=== PATIENT | female | born 1995 | race Caucasian/White ===

== ENCOUNTER 2018-12-29 16:12 | Emergency (ER) | payer MEDICAID, MEDICARE ==
[~2018-12-29] VITALS: Ht 165.1 cm; Wt 129.3 kg
[2018-12-29 16:31] VITALS: BP 172/94
--- NOTE | 2018-12-29 16:34 | NUR ---
PT TO LOBBY
--- NOTE | 2018-12-29 17:36 | NUR ---
BIB SELF. AAO X4 C/O ITCHY BURNING RASH TO BLE, CHEST, BACK X THIS AM. BREATHING EVEN AND UNLABORED. PT DENIES SOB, FEVER, N/V. ER TO EVALUATE PT.
--- NOTE | 2018-12-29 17:36 | NUR ---
pt ambulated to bed 4
--- NOTE | 2018-12-29 17:49 | NUR ---
[facility] AT BEDSIDE FOR PT EVAL
[2018-12-29] MEDS ORDERED: DEXAMETHASONE 10 MG/ML VIAL IM ONE (17:50)
[2018-12-29 18:28] VITALS: BP 142/88
--- NOTE | 2018-12-29 18:28 | NUR ---
Patient discharged with v/s stable. Written and verbal after care instructions given and explained. Patient alert, oriented and verbalized understanding of instructions. Ambulatory with steady gait. All questions addressed prior to discharge. ID band removed. Patient advised to follow up with PMD. Rx of [facility] HYDROCORTISONE 1%, DIPHENDYDRAINE HYDROCHLORIDE, PREDNISONE given. Patient educated on indication of medication including possible reaction and side effects. Opportunity to ask questions provided and answered.
== END 2018-12-29 18:28 | disposition home or self-care (01) ==
LOC: MED 16:12
DX: L30.9 Dermatitis, unspecified (principal)
CPT/HCPCS: 96372; 99283; J1100; Q0163

== ENCOUNTER 2020-07-31 16:48 | Emergency (ER) | payer MEDICAID ==
[~2020-07-31] VITALS: Ht 165.1 cm; Wt 123.8 kg
[2020-07-31 16:55] VITALS: BP 140/90
[2020-07-31] MEDS ORDERED: ONDANSETRON 4 MG ODT PO ONE (17:15)
--- NOTE | 2020-07-31 17:35 | NUR ---
25 Y/O FEMALE C/O ABD DISCOMFORT x1 MONTH, SEVERE NAUSEA IN THE LAST WEEK WITH POOR PO INTAKE. PT STATED SHE VOMITED THIS AM. PT ALSO STATES SHE HAS NEW BRUISING ON HER BLE AND DENIES INJURY/TRAUMA. PT STATED ABD PAIN HAS WORSEN X1 WEEK. PT DENIES SOB/ PAIN AT THIS TIME AND DENIES TAKING ANYTHING FOR THE PAIN. PT STATES SHE FEELS BLOATED AND IS BURPING OFTEN. ON ASSESSMENT, ABD IS FLAT, SOFT, AND NONTENDER WITHACTIVE BOWEL SOUNDS X4 QUADS. PT IS A/O X4 WITH EVEN AND UNLABORED RESPIRATIONS. Hx NEUROPATHY NKA
[2020-07-31 17:36] LABS: BASOPHILS # (AUTO) 0.1 K/uL (0.00-0.22); EOSINOPHILS % (AUTO) 0.5 % (0.0-4.0); HEMOGLOBIN 13.2 g/dL (12.0-16.0); LYMPHOCYTES # (AUTO) 2.1 K/uL (2.5-16.5); LYMPHOCYTES % (AUTO) 21.1 % (20.5-51.1); MEAN CORPUSCULAR HEMOGLOBIN 28 pg (27-31); MEAN CORPUSCULAR HGB CONC 32 g/dL (33-37); MEAN CORPUSCULAR VOLUME 86.8 fL (80-94); MONOCYTES # (AUTO) 0.9 K/uL (0.8-1.0); MONOCYTES % (AUTO) 9.2 % (1.7-9.3); NEUTROPHILS # (AUTO) 6.7 K/uL (1.8-7.7); NEUTROPHILS % (AUTO) 68.2 % (42.2-75.2); PLATELET COUNT (AUTO) 409 K/uL (140-450); RED BLOOD CELL COUNT(AUTO) 4.72 MIL/uL (4.20-5.40); RED CELL DISTRIBUTION WIDTH 14.8 % (11.6-13.7); WHITE BLOOD COUNT (AUTO) 9.8 K/uL (4.8-10.8)
--- NOTE | 2020-07-31 17:40 | NUR ---
PT AMBULATED TO RESTROOM FOR URINE SAMPLE
[2020-07-31 18:01] LABS: ALBUMIN 3.9 g/dL (3.4-5.0); CARBON DIOXIDE 28.5 mmol/L (21-32); POTASSIUM 3.5 mmol/L (3.5-5.1); TOTAL BILIRUBIN 0.4 mg/dL (0.0-1.0)
[2020-07-31 18:17] VITALS: BP 140/90
--- NOTE | 2020-07-31 18:18 | NUR ---
Patient discharged with v/s stable. Written and verbal after care instructions given and explained. Patient alert, oriented and verbalized understanding of instructions. Ambulatory with steady gait. All questions addressed prior to discharge. ID band removed. Patient advised to follow up with PMD. Rx of zofran, tylenol extra strength, bentyl, and omprezole given. Patient educated on indication of medication including possible reaction and side effects. Opportunity to ask questions provided and answered.
== END 2020-07-31 18:18 | disposition home or self-care (01) ==
LOC: MED 16:48
DX: K29.70 Gastritis, unspecified, without bleeding (principal); K58.9 Irritable bowel syndrome, unspecified; F12.10 Cannabis abuse, uncomplicated
CPT/HCPCS: 36415; 80053; 81002; 81025; 83690; 85025; 99283; Q0162

== ENCOUNTER 2021-06-23 11:49 | Emergency (ER) | payer MEDICAID ==
[~2021-06-23] VITALS: Ht 165.1 cm; Wt 121.1 kg
[2021-06-23 12:33] VITALS: BP 137/81
[2021-06-23] MEDS ORDERED: METOCLOPRAMIDE 10 MG TAB PO ONE (13:30)
[2021-06-23] MEDS ORDERED: KETOROLAC 60 MG/2 ML VIAL IM ONE (13:30)
[2021-06-23 13:49] LABS: BASOPHILS # (AUTO) 0.1 K/uL (0.00-0.22); BASOPHILS % (AUTO) 0.8 % (0.0-2.0); EOSINOPHILS % (AUTO) 0.1 % (0.0-4.0); HEMATOCRIT 42.6 % (36-48); LYMPHOCYTES # (AUTO) 1.6 K/uL (2.5-16.5); MEAN CORPUSCULAR HEMOGLOBIN 28 pg (27-31); MEAN CORPUSCULAR HGB CONC 33 g/dL (33-37); MEAN CORPUSCULAR VOLUME 84.7 fL (80-94); MONOCYTES # (AUTO) 0.5 K/uL (0.8-1.0); MONOCYTES % (AUTO) 7.5 % (1.7-9.3); NEUTROPHILS # (AUTO) 4.7 K/uL (1.8-7.7); NEUTROPHILS % (AUTO) 68.6 % (42.2-75.2); PLATELET COUNT (AUTO) 291 K/uL (140-450); RED BLOOD CELL COUNT(AUTO) 5.03 MIL/uL (4.20-5.40); RED CELL DISTRIBUTION WIDTH 15.1 % (11.6-13.7); WHITE BLOOD COUNT (AUTO) 6.9 K/uL (4.8-10.8)
--- NOTE | 2021-06-23 14:06 | NUR ---
PT TAKEN TO CT VIA W/C.
[2021-06-23 14:32] LABS: ALBUMIN 3.7 g/dL (3.4-5.0); ANION GAP 15.2 (8-16); CREATININE 0.8 mg/dL (0.6-1.3); POTASSIUM 4.2 mmol/L (3.5-5.1); TOTAL BILIRUBIN 0.3 mg/dL (0.0-1.0)
[2021-06-23] MEDS ORDERED: IBUP-2213 PO (14:40)
[2021-06-23] MEDS ORDERED: METO-486 PO (14:40)
[2021-06-23 14:59] VITALS: BP 129/74
--- NOTE | 2021-06-23 14:59 | NUR ---
Patient discharged with v/s stable. Written and verbal after care instructions given FOR MIGRAINE HEADACHE and explained. Patient alert, oriented and verbalized understanding of instructions. Ambulatory with steady gait. All questions addressed prior to discharge. ID band removed. Patient advised to follow up with PMD. Rx of IBUPROFEN AND REGLAN given. Patient educated on indication of medication including possible reaction and side effects. Opportunity to ask questions provided and answered.
[2021-06-23] MEDS ORDERED: NAPR-54 PO (15:21)
== END 2021-06-23 14:59 | disposition home or self-care (01) ==
LOC: MED 11:49
DX: R51.9 Headache, unspecified (principal); M79.10 Myalgia, unspecified site; R11.10 Vomiting, unspecified; R05.9 Cough, unspecified; F12.10 Cannabis abuse, uncomplicated
CPT/HCPCS: 70450; 80053; 81002; 81025; 85025; 96372; 99284; J1885; J8597

== ENCOUNTER 2022-06-22 14:44 | Emergency (ER) | payer MEDICAID ==
[~2022-06-22] VITALS: Ht 162.6 cm; Wt 133.8 kg
[~2022-06-22 14:44] MED LIST: METO-486 PO; NAPR-54 PO
[2022-06-22 14:49] VITALS: BP 153/79
--- NOTE | 2022-06-22 14:57 | NUR ---
AMBULATORY AND STEADY GAIT, TO RESTROOM FOR URINE SAMPLE
[2022-06-22] MEDS ORDERED: IBUP-2213 PO (16:27)
[2022-06-22] MEDS ORDERED: KETOROLAC 30 MG/ML VIAL IM ONE (16:30)
== END 2022-06-22 16:37 | disposition home or self-care (01) ==
LOC: MED 14:44
DX: S20.212A Contusion of left front wall of thorax, initial encounter (principal); M25.512 Pain in left shoulder; E66.9 Obesity, unspecified; Z68.1 Body mass index [BMI] 19.9 or less, adult; V49.88XA Car occupant (driver) (passenger) injured in other specified transport accidents, initial encounter; Y93.89 Activity, other specified; Y92.89 Other specified places as the place of occurrence of the external cause; Y99.8 Other external cause status
CPT/HCPCS: 71045; 71120; 73030; 81025; 99284

== ENCOUNTER 2022-06-24 13:39 | Emergency (ER) | payer MEDICAID ==
[~2022-06-24] VITALS: Ht 165.1 cm; Wt 132.9 kg
[~2022-06-24 13:39] MED LIST changes: +IBUP-2213 PO
[2022-06-24 13:46] VITALS: BP 118/59
--- NOTE | 2022-06-24 13:50 | NUR ---
Patient ambulated to bed 5.
--- NOTE | 2022-06-24 14:05 | NUR ---
Lab at bedside.
[2022-06-24 14:12] LABS: BASOPHILS # (AUTO) 0.1 K/uL (0.00-0.22); BASOPHILS % (AUTO) 0.7 % (0.0-2.0); EOSINOPHILS # (AUTO) 0.1 K/uL (0-0.4); EOSINOPHILS % (AUTO) 0.6 % (0.0-4.0); HEMATOCRIT 37.5 % (36-48); HEMOGLOBIN 12.4 g/dL (12.0-16.0); LYMPHOCYTES # (AUTO) 2.4 K/uL (2.5-16.5); LYMPHOCYTES % (AUTO) 24.4 % (20.5-51.1); MEAN CORPUSCULAR HEMOGLOBIN 27 pg (27-31); MEAN CORPUSCULAR HGB CONC 33 g/dL (33-37); MEAN CORPUSCULAR VOLUME 82.5 fL (80-94); MONOCYTES # (AUTO) 0.7 K/uL (0.8-1.0); MONOCYTES % (AUTO) 6.8 % (1.7-9.3); NEUTROPHILS # (AUTO) 6.7 K/uL (1.8-7.7); NEUTROPHILS % (AUTO) 67.5 % (42.2-75.2); PLATELET COUNT (AUTO) 386 K/uL (140-450); RED BLOOD CELL COUNT(AUTO) 4.54 MIL/uL (4.20-5.40); RED CELL DISTRIBUTION WIDTH 15.4 % (11.6-13.7)
[2022-06-24 14:30] LABS: ALBUMIN 3.9 g/dL (3.4-5.0); CREATININE 0.8 mg/dL (0.6-1.3); TOTAL BILIRUBIN 0.3 mg/dL (0.0-1.0)
[2022-06-24 14:42] LABS: APPEARANCE,URINE CLEAR (CLEAR); BILIRUBIN,URINE NEGATIVE (NEGATIVE); BLOOD, URINE 3+ (NEGATIVE); COLOR,URINE YELLOW (YELLOW); LEUKOCYTE ESTERASE ,URINE NEGATIVE (NEGATIVE); NITRITE, URINE NEGATIVE (NEGATIVE); UGLUCOSE NEGATIVE (NEGATIVE)
[2022-06-24] MEDS ORDERED: KETOROLAC 15 MG/ML VIAL IVP ONE (14:55)
[2022-06-24] MEDS ORDERED: LIDOCAINE 5% 1 EA PATCH TP ONE (14:55)
[2022-06-24 14:58] LABS: OTHER CASTS, URINE None Seen /LPF (None Seen); RBC,URINE 11-20 (MOD) /HPF (0-5); WBC,URINE 0-5 /HPF (0-5)
--- NOTE | 2022-06-24 15:15 | NUR ---
27 y/o female bib self with c/o abdominal pain s/p TC x 2 days ago. Patient is noted with bruising to the left side of her chest and abdomen. Patient has 8/10 pain when moving. Patient denies any fever, chills or SOB. Medical History: Denies NKDA
[2022-06-24] MEDS ORDERED: LID5T TP (16:29)
[2022-06-24 16:40] VITALS: BP 137/84
--- NOTE | 2022-06-24 16:40 | NUR ---
Patient discharged with v/s stable. Written and verbal after care instructions given. Patient alert, oriented and verbalized understanding of instructions. Ambulatory with steady gait. All questions addressed prior to discharge. ID band removed. Patient advised to follow up with PMD. Rx of Lidocaine Hyd given. Opportunity to ask questions provided and answered. WORK NOTE HANDED TO PATIENT.
--- NOTE | 2022-06-24 16:48 | NUR ---
The patient's care was reviewed and supervised by SRINIVAS YOUNGBLOOD RN.
== END 2022-06-24 16:40 | disposition home or self-care (01) ==
LOC: MED 13:39
DX: S20.212A Contusion of left front wall of thorax, initial encounter (principal); S30.1XXA Contusion of abdominal wall, initial encounter; V49.88XA Car occupant (driver) (passenger) injured in other specified transport accidents, initial encounter; Y93.89 Activity, other specified; Y92.89 Other specified places as the place of occurrence of the external cause; Y99.8 Other external cause status
CPT/HCPCS: 36415; 71045; 74177; 80053; 81001; 81025; 83690; 85025; 96374; 99285; J1885; Q9967

== ENCOUNTER 2023-09-01 16:00 | Emergency (ER) | payer OTHER, MEDICAID ==
[~2023-09-01] VITALS: Ht 165.1 cm; Wt 134.3 kg
[~2023-09-01 16:00] MED LIST changes: +LID5T TP
[2023-09-01 16:19] VITALS: BP 146/94; PULSE 76; RESP 20; TEMP 97.3; O2SAT 98
[2023-09-01] MEDS: HYDROcodone/APAP 7.5/325 MG 1 TAB PO ONE (18:32)
[2023-09-01] MEDS: KETOROLAC 30 MG/ML VIAL IM ONE (18:33)
[2023-09-01] MEDS ORDERED: ACET-8905 PO (18:51)
== END 2023-09-01 19:01 | disposition home or self-care (01) ==
LOC: MED 16:00
DX: G58.8 Other specified mononeuropathies (principal); R03.0 Elevated blood-pressure reading, without diagnosis of hypertension; Z79.1 Long term (current) use of non-steroidal anti-inflammatories (NSAID); Z79.899 Other long term (current) drug therapy
CPT/HCPCS: 96372; 99283; J1885